=== PATIENT | male | born 2000 | race African-American/Black ===

== ENCOUNTER 2020-12-11 22:51 | Emergency (ER) | payer MEDICAID ==
[~2020-12-11] VITALS: Ht 175.3 cm; Wt 66.0 kg
[2020-12-11] MEDS ORDERED: LIDOCAINE HCL 1% 20ML VIAL (Pyxis) INJ INFIL ONE (23:15)
[2020-12-11] MEDS ORDERED: CEFTRIAXONE SODIUM 500 MG/VIAL IM ONE (23:15)
[2020-12-11] MEDS ORDERED: DOXYCYCLINE HYCLATE 100MG CAPSULE PO ONE (23:15)
[2020-12-11 23:31] LABS: CLARITY URINE CLOUDY (CLEAR); COLOR URINE YELLOW (YELLOW); KETONES URINE NEGATIVE (NEGATIVE); LEUKOCYTE ESTERASE URINE NEGATIVE (NEGATIVE); NITRITE URINE NEGATIVE (NEGATIVE); OCCULT BLOOD URINE NEGATIVE (NEGATIVE); PROTEIN URINE NEGATIVE (NEGATIVE)
[2020-12-11] MEDS ORDERED: BICT1TAB PO (23:41)
[2020-12-11] MEDS ORDERED: DOXY100C2 MT (23:41)
[2020-12-12 01:19] VITALS: BP 128/84
[2020-12-14 04:07] LABS: NEISSERIA GONORRHOEAE NAA Negative (Negative)
== END 2020-12-12 01:26 | disposition left against medical advice (07) ==
LOC: ER 22:51
DX: Z20.2 Contact with and (suspected) exposure to infections with a predominantly sexual mode of transmission (principal); R03.0 Elevated blood-pressure reading, without diagnosis of hypertension; Z76.0 Encounter for issue of repeat prescription; Z86.19 Personal history of other infectious and parasitic diseases
CPT/HCPCS: 81003; 87491; 87591; 96372; 99283; J0696; J3490

== ENCOUNTER 2021-12-12 01:18 | Emergency (ER) | payer MEDICAID ==
[~2021-12-12] VITALS: Ht 175.3 cm; Wt 65.0 kg
[~2021-12-12 01:18] MED LIST: BICT1TAB PO; DOXY100C5 MT
[2021-12-12] MEDS ORDERED: CEFTRIAXONE SODIUM 500 MG/VIAL IM ONE (05:30)
[2021-12-12] MEDS ORDERED: DOXYCYCLINE HYCLATE 100MG CAPSULE PO ONE (05:30)
[2021-12-12 05:41] LABS: CLARITY URINE CLEAR (CLEAR); COLOR URINE YELLOW (YELLOW); KETONES URINE NEGATIVE (NEGATIVE); LEUKOCYTE ESTERASE URINE 2+ (NEGATIVE); NITRITE URINE NEGATIVE (NEGATIVE); OCCULT BLOOD URINE NEGATIVE (NEGATIVE); PH URINE 6.5 (4.5-8.0); PROTEIN URINE NEGATIVE (NEGATIVE); UROBILINOGEN URINE 0.2 E.U./dL (0.2-1.0)
[2021-12-12] MEDS ORDERED: DOXY100C5 MT ×2 (09:06→09:08)
[2021-12-12 09:28] VITALS: BP 126/67
[2021-12-15 04:08] LABS: NEISSERIA GONORRHOEAE NAA Positive (Negative)
== END 2021-12-12 09:31 | disposition home or self-care (01) ==
LOC: ER 01:18
DX: Z20.2 Contact with and (suspected) exposure to infections with a predominantly sexual mode of transmission (principal)
CPT/HCPCS: 81003; 86592; 86593; 86780; 87086; 87491; 87591; 96372; 99283; J0696

== ENCOUNTER 2021-12-20 01:28 | Emergency (ER) | payer MEDICAID ==
[~2021-12-20] VITALS: Ht 177.8 cm; Wt 65.0 kg
[2021-12-20 04:06] LABS: BASOPHILS % 0.4 % (0.0-2.0); EOSINOPHILS % 3.8 % (0.0-5.0); HEMATOCRIT. 41.5 % (42.0-52.0); HEMOGLOBIN. 13.5 g/dL (14.0-18.0); LYMPHOCYTES % 46.3 % (20.0-50.0); MEAN CORPUSCULAR HEMOGLOBIN 27.6 pg (28.0-32.0); MEAN CORPUSCULAR VOLUME 84.6 fL (80.0-94.0); MEAN PLATELET VOLUME 8.5 fl (7.4-10.4); MONOCYTES % 8.8 % (2.0-8.0); NEUTROPHILS % 40.7 % (40.0-76.0); PLATELET 241 x1000/uL (130-400); RED BLOOD CELL COUNT 4.91 mill/uL (4.7-6.1); RED CELL DISTRIBUTION WIDTH 14.8 % (11.6-14.6)
[2021-12-20 04:14] LABS: CHLORIDE 106 mEq/L (98-107)
[2021-12-20 04:23] LABS: ETHANOL BLOOD < 10 mg/dL
[2021-12-20 05:08] LABS: *AMPHETAMINES SCREEN URINE PRESUMTIVE POSITIVE (NEGATIVE); *BARBITURATES SCREEN URINE NEGATIVE (NEGATIVE); *BENZODIAZEPINES SCREEN URINE NEGATIVE (NEGATIVE); *COCAINE SCREEN URINE NEGATIVE (NEGATIVE); CANNABINOID URINE SCREEN NEGATIVE (NEGATIVE); METHADONE URINE SCREEN NEGATIVE (NEGATIVE); OPIATES URINE SCREEN NEGATIVE (NEGATIVE); PHENCYCLIDINE URINE SCREEN NEGATIVE (NEGATIVE)
[2021-12-20] MEDS: ARIPIPRAZOLE 5MG TABLET PO SCH (09:09)
[2021-12-20] MEDS: FLUOXETINE HCL 10 MG CAPSULE PO SCH (09:09)
[2021-12-21] MEDS: ARIPIPRAZOLE 5MG TABLET PO SCH (11:15)
[2021-12-21] MEDS: FLUOXETINE HCL 10 MG CAPSULE PO SCH (11:16)
[2021-12-21 16:11] VITALS: BP 131/90
== END 2021-12-21 16:18 ==
LOC: ER 01:28
DX: F33.3 Major depressive disorder, recurrent, severe with psychotic symptoms (principal); R45.851 Suicidal ideations; F43.9 Reaction to severe stress, unspecified; F15.10 Other stimulant abuse, uncomplicated; F16.10 Hallucinogen abuse, uncomplicated; Z59.00 Homelessness unspecified; Z20.822 Contact with and (suspected) exposure to COVID-19
CPT/HCPCS: 36415; 80053; 80305; 80307; 80320; 80329; 85025; 93005; 99285; C9803; U0003; U0005; G0480

== ENCOUNTER 2023-07-22 15:23 | Emergency (ER) | payer MEDICAID ==
[~2023-07-22] VITALS: Ht 177.8 cm; Wt 64.5 kg
[2023-07-22 15:35] VITALS: BP 102/70; PULSE 91; RESP 16; TEMP 97.9; O2SAT 98
[2023-07-22] MEDS ORDERED: DOXY100C5 MT (16:22)
[2023-07-22] MEDS ORDERED: CEFTRIAXONE SODIUM 500 MG/VIAL IM ONE (16:30)
[2023-07-25 10:07] LABS: CHLAMYDIA TRACHOMATIS NAA Negative (Negative); NEISSERIA GONORRHOEAE NAA Positive (Negative)
== END 2023-07-22 16:41 | disposition home or self-care (01) ==
LOC: ER 15:23
DX: A64 Unspecified sexually transmitted disease (principal)
CPT/HCPCS: 87491; 87591; 96372; 99283; J0696; Z7610